=== PATIENT | male | born 1975 | race Hispanic/Latino ===

== ENCOUNTER 2017-06-22 22:05 | Emergency (ER) | payer MEDICAID, OTHER ==
[2017-06-22] MEDS ORDERED: LIDOCAINE HCL-MPF 1% 2ML VIAL ONE (23:01)
[2017-06-22] MEDS ORDERED: CEFTRIAXONE SODIUM 1 GM ONE (23:01)
[2017-06-22] MEDS ORDERED: ONDANSETRON ODT 4 MG TAB ONE (23:02)
[2017-06-22] MEDS ORDERED: MORPHINE SULFATE 2 MG/ML 1ML SYG ONE (23:03)
[2017-06-22] MEDS ORDERED: MORPHINE SULFATE 4 MG/1ML SYG ONE (23:03)
== END 2017-06-22 23:24 | disposition home or self-care (01) ==
LOC: EDH 22:05
DX: H66.001 Acute suppurative otitis media without spontaneous rupture of ear drum, right ear (principal); R50.81 Fever presenting with conditions classified elsewhere
CPT/HCPCS: 96372 ×2; 99284; J0696; J2270; J3490

== ENCOUNTER 2017-06-29 18:38 | Emergency (ER) | payer OTHER | END 2017-06-29 19:27 | disposition home or self-care (01) | LOC: EDH 18:38 | DX: G51.0 Bell's palsy (principal) ==

== ENCOUNTER 2022-08-20 16:31 | Emergency (ER) | payer OTHER ==
[~2022-08-20] VITALS: Ht 182.9 cm; Wt 122.5 kg
[2022-08-20 17:07] LABS: BASOPHILS % (AUTO) 0.4 % (0.0-5.0); EOSINOPHILS % (AUTO) 1.7 % (0.0-8.0); HEMATOCRIT 41.2 % (42-54); LYMPHOCYTES % (AUTO) 20.8 % (21.0-51.0); MEAN CORPUSCULAR HEMOGLOBIN 30.5 pg (27.0-33.0); MEAN CORPUSCULAR VOLUME 87.3 fL (79-99); MONOCYTES % (AUTO) 11.3 % (3.0-13.0); NEUTROPHILS % (AUTO) 65.6 % (40.0-77.0); PLATELET COUNT (AUTO) 222 K/uL (130-400); RED BLOOD CELL COUNT(AUTO) 4.72 MIL/uL (4.50-6.20); RED CELL DISTRIBUTION WIDTH 12.1 % (11.0-15.5); WHITE BLOOD COUNT (AUTO) 9.7 K/uL (4.8-10.8)
[2022-08-20 17:23] LABS: CREATININE 1.1 mg/dL (0.5-1.5); POTASSIUM 3.4 mmol/L (3.5-5.1)
[2022-08-20 17:32] LABS: ALBUMIN 3.4 g/dL (3.5-5.0); TOTAL PROTEIN, SERUM 6.8 g/dL (6.0-8.3)
[2022-08-20 17:36] LABS: APPEARANCE,URINE CLEAR (CLEAR); BILIRUBIN,URINE NEGATIVE (NEGATIVE); COLOR,URINE YELLOW (YELLOW); GLUCOSE, URINE (UA) NEGATIVE (NEGATIVE); KETONES,URINE 10 mg/dL (NEGATIVE); LEUKOCYTE ESTERASE ,URINE NEGATIVE Leu/uL (NEGATIVE); NITRATE,URINE NEGATIVE (NEGATIVE); OCCULT BLOOD,URINE NEGATIVE (NEGATIVE); PROTEIN,URINE 10 mg/dL (NEGATIVE)
[2022-08-20 17:41] LABS: BACTERIA,URINE RARE /HPF (None Seen); MUCUS,URINE MOD LPF (None Seen); RBC,URINE 0-1 /HPF (0-1); SQUAMOUS EPITHELIAL CELL,UR RARE /HPF (0-2)
[2022-08-20] MEDS ORDERED: POTASSIUM BICARB/CIT AC 25 MEQ TABLET.EFF PO STA (18:22)
[2022-08-20 19:01] VITALS: BP 110/57
[2022-08-20] MEDS ORDERED: PANT40TA55 PO (19:08)
[2022-08-20] MEDS ORDERED: NAPR375T6 PO (19:08)
== END 2022-08-20 19:37 | disposition home or self-care (01) ==
LOC: EDH 16:31
DX: E87.6 Hypokalemia (principal); M94.0 Chondrocostal junction syndrome [Tietze]; E11.9 Type 2 diabetes mellitus without complications; I10 Essential (primary) hypertension; Z79.899 Other long term (current) drug therapy
CPT/HCPCS: 36415; 71045; 80053; 81001; 84484; 85025; 93005